=== PATIENT | female | born 2000 | race Caucasian/White ===

== ENCOUNTER 2021-12-09 13:47 | Emergency (ER) | payer OTHER ==
[~2021-12-09] VITALS: Ht 162.6 cm; Wt 83.6 kg
[2021-12-09 16:29] VITALS: BP 108/70; TEMP 98
[2021-12-09 18:23] VITALS: PULSE 95
== END 2021-12-09 18:23 | disposition home or self-care (01) ==
LOC: COL.ER 13:47
DX: S80.01XA Contusion of right knee, initial encounter (principal); V23.4XXA Motorcycle driver injured in collision with car, pick-up truck or van in traffic accident, initial encounter